=== PATIENT | male | born 1975 | race African-American/Black ===

== ENCOUNTER 2018-10-31 12:57 | Inpatient (IN) | payer MEDICAID, OTHER ==
[~2018-10-31] VITALS: Ht 177.8 cm; Wt 88.5 kg
[~2018-10-31 12:57] MED LIST: BACITRACIN3.5 GM OP; ENALAPRIL MALE2.5 MG ORAL; IBUPROFEN600 MG ORAL; TRAMADOL HCL50 MG ORAL
--- NOTE | 2018-10-31 13:12 | NUR ---
ED Nurse Note: Pt.AAOx4. Wheeled into ER due abd pain that started today. Per pt. has n/v. Pt. had multiple vomniting episodes as reported by patietn with bile emesis. Pt. denies diarrhea and last BM was today. Per pt. he only had very little stool and has not been able to poop for couple of days. Pt. cannot remember how many days exactly he is constipated
--- NOTE | 2018-10-31 13:34 | Emergency Room Report ---
History of Present Illness General Chief Complaint: Abdominal Pain Source: Patient Present Illness HPI Patient is a 43-year-old male who presented after increased abdominal discomfort and vomiting. Patient reports of increased pain to the left upper abdomen. He reports having prior history of hypertension. Patient had acute onset of vomiting earlier in the day. Patient states that he had not been taking any medications. Patient denies any recent alcohol use. He reports having nonbloody emesis. He denies any diarrhea. Allergies: Coded Allergies: No Known Allergies (Unverified , 05/09/14) Patient History Reviewed Nursing Documentation: PMH: Agreed; PSxH: Agreed Nursing Documentation-[facility] Past Medical History: No History, Except For Hx Hypertension: Yes Review of Systems All Other Systems: negative except mentioned in HPI Physical Exam Vital Signs Date Time Temp Pulse Resp B/P (MAP) Pulse Ox O2 Delivery O2 Flow Rate FiO2 10/31/18 12:59 98.1 78 20 178/106 (130) 99 Room Air Sp02 EP Interpretation: reviewed, normal General Appearance: normal inspection, no apparent distress, alert, GCS 15, mild distress Head: atraumatic ENT: normal ENT inspection, hearing grossly normal, normal voice Neck: normal inspection, full range of motion, supple, no bony tend Respiratory: normal inspection, lungs clear, normal breath sounds, no respiratory distress, no retraction, no wheezing Cardiovascular #1: regular rate, rhythm, no edema Gastrointestinal: normal inspection, normal bowel sounds, non tender, soft, no guarding, no hernia Genitourinary: no CVA tenderness Musculoskeletal: normal inspection, back normal, normal range of motion Neurologic: normal inspection, alert, responsive, speech normal Psychiatric: normal inspection, judgement/insight normal, mood/affect normal Skin: normal inspection, normal color, no rash Medical Decision Making Diagnostic Impression: Primary Impression: Hypertensive urgency ER Course Patient presented for abdominal pain. Differential diagnoses included ischemic bowel, appendicitis, perforated viscus, abdominal aortic aneurysm, inferior myocardial infarction, viral gastroenteritis among others. Because of complexity of patient's case laboratory testing and imaging studies were ordered. Patient was noted to have initial nausea and vomiting. He is markedly hypertensive initially. Patient was given IV antiemetics as well as IV fluids. Patient was noted to have some improvement in his blood pressure. Patient's laboratory testing was significant for elevated troponin. Patient was given aspirin. EKG interpreted by me showed normal sinus rhythm without acute ST Changes. Patient was noted to have some lateral T wave inversion. Dr. Jhoan Childs was contacted for inpatient management due to panel physician. Labs Test 10/31/18 13:38 11/01/18 06:16 11/01/18 12:17 11/01/18 13:00 White Blood Count 10.0 K/UL (4.8-10.8) Red Blood Count 5.50 M/UL (4.70-6.10) Hemoglobin 16.4 G/DL (14.2-18.0) Hematocrit 50.9 % (42.0-52.0) Mean Corpuscular Volume 93 FL (80-99) Mean Corpuscular Hemoglobin 29.9 PG (27.0-31.0) Mean Corpuscular Hemoglobin Concent 32.3 G/DL (32.0-36.0) Red Cell Distribution Width 12.4 % (11.6-14.8) Platelet Count 222 K/UL (150-450) Mean Platelet Volume 7.1 FL (6.5-10.1) Neutrophils (%) (Auto) 71.6 % (45.0-75.0) Lymphocytes (%) (Auto) 17.7 % (20.0-45.0) Monocytes (%) (Auto) 6.9 % (1.0-10.0) Eosinophils (%) (Auto) 3.0 % (0.0-3.0) Basophils (%) (Auto) 0.9 % (0.0-2.0) Sodium Level 142 MMOL/L (136-145) Potassium Level 4.0 MMOL/L (3.5-5.1) Chloride Level 106 MMOL/L (98-107) Carbon Dioxide Level 26 MMOL/L (21-32) Anion Gap 10 mmol/L (5-15) Blood Urea Nitrogen 19 mg/dL (7-18) Creatinine 1.2 MG/DL (0.55-1.30) Estimat Glomerular Filtration Rate > 60 mL/min (>60) Glucose Level 101 MG/DL (74-106) Calcium Level 9.5 MG/DL (8.5-10.1) Total Bilirubin 0.4 MG/DL (0.2-1.0) Aspartate Amino Transf (AST/SGOT) 20 U/L (15-37) Alanine Aminotransferase (ALT/SGPT) 23 U/L (12-78) Alkaline Phosphatase 88 U/L (46-116) Total Protein 8.1 G/DL (6.4-8.2) Albumin 3.7 G/DL (3.4-5.0) Globulin 4.4 g/dL Albumin/Globulin Ratio 0.8 (1.0-2.7) Lipase 77 U/L (73-393) Serum Alcohol < 3 mg/dL Triglycerides Level 58 MG/DL (30-150) Cholesterol Level 124 MG/DL (< 200) LDL Cholesterol 64 mg/dL (<100) HDL Cholesterol 42 MG/DL (40-60) Cholesterol/HDL Ratio 3.0 (3.3-4.4) Thyroid Stimulating Hormone (TSH) 1.644 uiU/mL (0.358-3.740) Urine Opiates Screen Negative (NEGATIVE) Urine Barbiturates Screen Negative (NEGATIVE) Phencyclidine (PCP) Screen Negative (NEGATIVE) Urine Amphetamines Screen Positive (NEGATIVE) Urine Benzodiazepines Screen Negative (NEGATIVE) Urine Cocaine Screen Negative (NEGATIVE) Urine Marijuana (THC) Screen Positive (NEGATIVE) EKG Diagnostic Results Rate: normal Rhythm: NSR ST Segments: no acute changes Last Vital Signs Date Time Temp Pulse Resp B/P (MAP) Pulse Ox O2 Delivery O2 Flow Rate FiO2 10/31/18 12:59 98.1 78 20 178/106 (130) 99 Room Air Status: improved Disposition: ADMITTED INPATIENT Condition: Stable Scripts No Active Prescriptions or Reported Michael Anna MD October 31, 2018 13:34
[2018-10-31 13:50] VITALS: BP 165/114
[2018-10-31 14:09] LABS: BASOPHILS % (AUTO) 0.9 % (0.0-2.0); HEMATOCRIT 50.9 % (42.0-52.0); HEMOGLOBIN 16.4 G/DL (14.2-18.0); LYMPHOCYTES % (AUTO) 17.7 % (20.0-45.0); MEAN CORPUSCULAR VOLUME 93 FL (80-99); MONOCYTES % (AUTO) 6.9 % (1.0-10.0); NEUTROPHILS % (AUTO) 71.6 % (45.0-75.0); PLATELET COUNT 222 K/UL (150-450); RED CELL DISTRIBUTION WIDTH 12.4 % (11.6-14.8)
[2018-10-31 14:24] LABS: ANION GAP 10 mmol/L (5-15); BLOOD UREA NITROGEN 19 mg/dL (7-18); CALCIUM 9.5 MG/DL (8.5-10.1); CARBON DIOXIDE 26 MMOL/L (21-32); CHLORIDE 106 MMOL/L (98-107); CREATININE 1.2 MG/DL (0.55-1.30); SODIUM 142 MMOL/L (136-145)
[2018-10-31 14:31] LABS: ALANINE AMINOTRANSFERASE 23 U/L (12-78); ALBUMIN 3.7 G/DL (3.4-5.0); ALBUMIN/GLOBULIN RATIO 0.8 (1.0-2.7); ALKALINE PHOSPHATASE 88 U/L (46-116); ASPARTATE AMINO TRANSFERASE 20 U/L (15-37); BILIRUBIN,TOTAL 0.4 MG/DL (0.2-1.0)
--- NOTE | 2018-10-31 15:00 | NUR ---
ED Nurse Note: PT. IS NOT ABLE TO URINATE. DR. Pereyra IS AWARE AND IT'S OK NOT TO COLLECT IT. PT. IS AWARE OF THE ADMISSION
--- NOTE | 2018-10-31 15:20 | NUR ---
HAND-OFF: Report given to DINORA Sales.
[2018-10-31] MEDS ORDERED: Aspirin Baby 81mg ORAL ONE (15:30)
--- NOTE | 2018-10-31 15:36 | Diagnostic Imaging Report ---
Indication: Chest pain Technique: One view of the chest Comparison: none Findings: Heart is mildly enlarged. Lungs pleural spaces are clear. Impression: Mild cardiomegaly. No acute process
--- NOTE | 2018-10-31 16:02 | NUR ---
ED Nurse Note: TELE UNIT CALLED FOR PT TRANSFER. PER DINORA CHOWDHURY, ROOM IS STILL NOT READY. RN TO CALL BACK WHEN READY.
[2018-10-31 16:04] VITALS: BP 159/104
--- NOTE | 2018-10-31 16:13 | NUR ---
ED Nurse Note: TELE UNIT CALLED AGAIN FOR PT TRANSFER. PER DINORA CHOWDHURY, ROOM IS STILL NOT READY. DINORA CHOWDHURY WILL CALL BACK WHEN READY.
--- NOTE | 2018-10-31 16:41 | NUR ---
ED Nurse Note: CALL RECEIVED FROM DINORA CHOWDHURY IN TELE UNIT. REPORT GIVEN. 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
--- NOTE | 2018-10-31 16:42 | NUR ---
NURSE NOTES: Received report from DINORA Sales @ ED.
[2018-10-31 17:00] VITALS: BP 154/106
--- NOTE | 2018-10-31 19:20 | NUR ---
NURSE NOTES: Report received from Devin Rubio RN. Pt is resting in bed in stable condition. Pt is awake, alert, and oriented x4. Pt is on room air and breathing is even and unlabored. No acute distress noted. IV site is L upper arm #20g and is asymptomatic, patent, and intact and running IV fluids at rx rate. Bed is placed in lowest position with brake engaged, side rails up x3, and bed alarm on. Call light and side table placed within reach. Will continue to monitor.
--- NOTE | 2018-10-31 19:20 | NUR ---
HAND-OFF: Report given to DINORA Khan. Endorsed plan of care.
[2018-10-31 20:00] VITALS: BP 133/78
[2018-10-31] MEDS: Metoprolol 25mg tab ORAL SCH (20:27)
[2018-10-31] MEDS ORDERED: Heparin 5000 units/ml inj SUBQ SCH (21:00)
--- NOTE | 2018-10-31 21:15 | NUR ---
NURSE NOTES: Critical troponin reported from lab of 0.205. Troponin trending downward from 0.241. Message left to notify MD Addison of critical value.
--- NOTE | 2018-10-31 23:45 | History and Physical Report ---
DATE OF ADMISSION: 10/31/2018 REASON FOR ADMISSION: Chest pain, possible acute coronary syndrome. HISTORY: This is a 43-year-old male, who presents with abdominal discomfort. The patient has history of hypertension and was noted to have elevated blood pressure. The patient denies any recent alcohol use. No history of CAD or any family history. PAST MEDICAL HISTORY: Notable for hypertension. MEDICATIONS: Reviewed. ALLERGIES: Reviewed. PHYSICAL EXAMINATION: GENERAL: A well-developed male, comfortable at present. VITAL SIGNS: Reviewed. In the emergency room, blood pressure 178/106, pulse 78, and respirations 20. HEENT: Negative. NECK: Supple. LUNGS: Clear. CARDIAC: S1 and S2. Regular rate and rhythm. ABDOMEN: Soft, nontender, and nondistended. EXTREMITIES: No edema. LABORATORY DATA: Otherwise reviewed. CBC essentially negative. Chemistry is fairly negative. Troponin 0.241. IMPRESSION: 1. Elevated troponin, possible acute coronary syndrome. 2. Mild cardiomegaly. 3. Hypertension, poorly controlled. RECOMMENDATIONS: 1. Supportive care. 2. Troponin every 8 hours x3. 3. Cardiology evaluation. 4. Cardiac diet. 5. Telemetry. 6. Disposition once cleared and the patient improves. Jhoan Childs M.D. DR: MANASA JOB#: [id number] CC:
[2018-11-01] VITALS: BP 157/109
--- NOTE | 2018-11-01 03:00 | Consultation ---
DATE OF CONSULTATION: 10/31/2018 CARDIOLOGY CONSULTATION CONSULTING PHYSICIAN: Zeb Addison M.D. REQUESTING PHYSICIAN: Gaston Graham M.D. REASON FOR CONSULTATION: Malignant hypertension and chest pain. HISTORY OF PRESENT ILLNESS: This 43-year-old male has a longstanding history of hypertension and long periods of noncompliance with medication therapy. He has had poor medical follow-up more recently and does not have a primary physician and has not taken his blood pressure medications for about two months. Further, he has had such episodes of noncompliance in the past as long as 8 years ago when he was incarcerated for a time. On this occasion, he has developed abdominal pain, nausea, vomiting, and chest pain. He came to the emergency room were malignant range blood pressure was confirmed. He was started on therapy and admitted to the hospital for further management. I have been asked to assist with cardiovascular care. PAST MEDICAL HISTORY: Hypertension. MEDICATIONS: Previously prescribed were reviewed. ALLERGIES: None known. SOCIAL HISTORY: Positive smoker. History of alcohol use. History of substance abuse. REVIEW OF SYSTEMS: A 10-point review of systems performed. All systems negative other than noted above. PHYSICAL EXAMINATION: VITAL SIGNS: Blood pressure as high as 178/106, heart rate 78, respiratory rate 20, and afebrile. HEENT: Fundi benign. Conjunctivae pink. Oropharynx clear. NECK: Supple. Jugular venous pressure normal. No bruits. LUNGS: Clear. CARDIAC: Regular. Normal S1, S2 with no murmur. ABDOMEN: Soft and nontender with no bruits. EXTREMITIES: Good pulses. No edema. NEUROLOGIC: Nonfocal. LABORATORY AND DIAGNOSTIC DATA: EKG reveals sinus bradycardia with left ventricular hypertrophy. Laboratories, white count 10 and hemoglobin 16. Troponin 0.241. BUN 12 19 and creatinine 1.2. Potassium 4. Chest x-ray, no acute process. IMPRESSION: 1. Hypertensive urgency. 2. Acute coronary insufficiency and possible non-ST elevation myocardial infarction. 3. Chronic kidney disease. PLAN: 1. Anti-platelet therapy. 2. Cardiac monitoring. 3. Titrate antihypertensive regimen including calcium and beta-blockers. 4. Avoid diuretics. 5. Lipid panel. 6. Thyroid function. 7. Consideration for further assessment of coronary flow reserve. 8. We will follow. 9. An echocardiogram has been requested at this time. Zeb [place] Addison DR: CINDI JOB#: [id number] CC:
[2018-11-01 04:00] VITALS: BP 157/98
--- NOTE | 2018-11-01 07:18 | NUR ---
NURSE NOTES: Received report from DINORA Khan. Patient is in stable condition. No acute distress/SOB noted. Will continue plan of care.
--- NOTE | 2018-11-01 07:23 | NUR ---
HAND-OFF: Report given to Devin Rubio RN. Pt is resting in bed in stable condition. No acute distress noted. Endorsed plan of care.
[2018-11-01 07:47] LABS: CHOLESTEROL 124 MG/DL (< 200); HDL CHOLESTEROL 42 MG/DL (40-60); TRIGLYCERIDES 58 MG/DL (30-150)
[2018-11-01 08:00] VITALS: BP 169/96
[2018-11-01] MEDS: Metoprolol 25mg tab ORAL SCH ×2 (08:09→21:57)
[2018-11-01 12:00] VITALS: BP 142/94
[2018-11-01] MEDS ORDERED: Lisinopril 20mg tab ORAL SCH (12:00)
--- NOTE | 2018-11-01 12:12 | Cardiology Report ---
APPROVED REPORT EKG Measurement Heart [id number] NM [id number] Normal sinus rhythm Possible Left atrial enlargement Nonspecific T wave abnormality Abnormal ECG
--- NOTE | 2018-11-01 12:42 | Cardiology Report ---
APPROVED REPORT EXAM: Two-dimensional and M-mode echocardiogram with Doppler and color Doppler. INDICATION Abnormal cardiac function M-Mode DIMENSIONS IVSd1.0 (0.7-1.1cm)Left Atrium (MM)4.2 (1.6-4.0cm) LVDd5.0 (3.5-5.6cm)Aortic Root3.3 (2.0-3.7cm) PWd1.2 (0.7-1.1cm)Aortic Cusp Exc.2.3 (1.5-2.0cm) IVSs1.6 cm LVDs2.7 (2.5-4.0cm) PWs1.8 cm Normal left ventricular chamber size, systolic function and wall motion. Left ventricular ejection fraction estimated to be 60-65 %. Moderate left ventricular hypertrophy. Anterior Echo-free space, may be due to pericardial fat or effusion. Left atrial size at upper limits of normal. Right cardiac chamber sizes are within normal limits. Focal aortic valve sclerosis with adequate cusp excursion. Thickened mitral valve leaflets with normal excursion. Mitral annulus and aortic root calcification. Normal pulmonic valve structure. Normal tricuspid valve structure. IVC at normal size with physiologic collapse. A color flow and spectral Doppler study was performed and revealed: Trace mitral regurgitation. Mitral diastolic velocities suggest reduced left ventricular relaxation c/w mild LV diastolic dysfunction (Grade I). Trace tricuspid regurgitation. Tricuspid systolic velocities suggests peak right ventricular systolic pressure of 20 mmHg.
--- NOTE | 2018-11-01 13:01 | NUR ---
NURSE NOTES: Called Dr. Addison and left message for pt's drug urine test positive for amphetamine and marijuana.
--- NOTE | 2018-11-01 13:01 | General Progress Note ---
Assessment/Plan Assessment/Plan: hypertension out of control elevated troponin amphetamine use PLAN bp rx cards follow up await clearance echo reviewed labs stable impression, plan, and exam edited and reviewed in detail care discussed with RN Subjective Allergies: Coded Allergies: No Known Allergies (Unverified , 05/09/14) Subjective wants to go home awaiting cards recommendations Objective Last 24 Hour Vital Signs Date Time Temp Pulse Resp B/P (MAP) Pulse Ox O2 Delivery O2 Flow Rate FiO2 11/01/18 12:12 148/92 11/01/18 12:00 98.1 58 20 142/94 (110) 96 11/01/18 11:31 154/92 11/01/18 09:00 Room Air 11/01/18 08:09 57 169/96 11/01/18 08:09 57 169/96 11/01/18 08:00 62 11/01/18 08:00 98.5 57 20 169/96 (120) 97 11/01/18 04:29 157/98 11/01/18 04:00 59 11/01/18 04:00 98.1 57 18 157/98 (117) 97 11/01/18 00:00 98.3 55 20 157/109 (125) 97 11/01/18 00:00 55 10/31/18 21:00 Room Air 10/31/18 20:27 64 133/78 10/31/18 20:00 66 10/31/18 20:00 98.6 64 16 133/78 (96) 100 10/31/18 18:04 60 154/106 10/31/18 17:35 Room Air 10/31/18 17:00 60 10/31/18 17:00 97.5 58 20 154/106 (122) 98 10/31/18 16:40 98.3 64 21 181/121 98 Room Air 10/31/18 16:04 98.2 62 20 159/104 99 Room Air 10/31/18 13:50 60 17 Room Air 10/31/18 13:50 98.1 60 17 165/114 99 Room Air Intake and Output 10/31/18 11/01/18 19:00 07:00 Intake Total 1390 ml 240 ml Output Total 0 ml Balance 1390 ml 240 ml Intake Oral 240 ml 240 ml IV Total 1150 ml Output Urine Total 0 ml Laboratory Tests 10/31/18 13:38: White Blood Count 10.0, Red Blood Count 5.50, Hemoglobin 16.4, Hematocrit 50.9, Mean Corpuscular Volume 93, Mean Corpuscular Hemoglobin 29.9, Mean Corpuscular Hemoglobin Concent 32.3, Red Cell Distribution Width 12.4, Platelet Count 222, Mean Platelet Volume 7.1, Neutrophils (%) (Auto) 71.6, Lymphocytes (%) (Auto) 17.7L, Monocytes (%) (Auto) 6.9, Eosinophils (%) (Auto) 3.0, Basophils (%) (Auto ) 0.9, Sodium Level 142, Potassium Level 4.0, Chloride Level 106, Carbon Dioxide Level 26, Anion Gap 10, Blood Urea Nitrogen 19H, Creatinine 1.2, Estimat Glomerular Filtration Rate > 60, Glucose Level 101, Calcium Level 9.5, Total Bilirubin 0.4, Aspartate Amino Transf (AST/SGOT) 20, Alanine Aminotransferase (ALT/SGPT) 23, Alkaline Phosphatase 88, Troponin I 0.241H, Total Protein 8.1, Albumin 3.7, Globulin 4.4, Albumin/Globulin Ratio 0.8L, Lipase 77, Serum Alcohol < 3 10/31/18 20:15: Troponin I 0.205H 11/01/18 06:16: Troponin I 0.218H, Triglycerides Level 58, Cholesterol Level 124, LDL Cholesterol 64, HDL Cholesterol 42, Cholesterol/HDL Ratio 3.0L, Thyroid Stimulating Hormone (TSH) 1.644 11/01/18 12:17: Urine Opiates Screen Negative, Urine Barbiturates Screen Negative, Phencyclidine (PCP) Screen Negative, Urine Amphetamines Screen PositiveH, Urine Benzodiazepines Screen Negative, Urine Cocaine Screen Negative, Urine Marijuana (THC) Screen PositiveH Height (Feet): 5 Height (Inches): 10.00 Weight (Pounds): 195 Objective WDWN NAD clear breath sounds bilaterally without rhonchi or wheeze [id number] without MRG NABS nontender no HSM no CCE nonfocal Jhoan Childs MD November 01, 2018 13:01
--- NOTE | 2018-11-01 15:00 | NUR ---
*-* INSURANCE *-* CLINICALS HAVE BEEN FAXED TO: [facility] FAX CLINICALS TO [phone]
[2018-11-01 16:00] VITALS: BP 136/87
--- NOTE | 2018-11-01 16:06 | NUR ---
CASE MANAGEMENT:REVIEW 43 YR OLD MALE PRESENTED TO ER CC: ABDOMINAL PAIN WITH NAUSEA AND VOMITING SI: HYPERTENSIVE URGENCY. ELEVATED TROPONIN 98.0 78 20 181/121 99% ON RA BUN+19 TROPONIN(+) 0.241 IS: IV ZOFRAN IV PEPCID 1L NS BOLUS ASA PO : TO TELEMETRY IS: LISINOPRIL PO QD NORVASC PO BID LOPRESSOR PO Q12 INTERQUAL CRITERIA MET
[2018-11-01] MEDS: Aspirin EC 81mg tab ORAL SCH (18:49)
--- NOTE | 2018-11-01 19:15 | NUR ---
NURSE NOTES: Report received from Devin Rubio RN. Pt is resting in bed in stable condition. Pt is AOx4. Pt is on room air and breathing is even and unlabored. No acute distress noted. IV site is R FA #20g and is asymptomatic, patent, and intact. Bed is in lowest position with brake engaged, side rails up x2. Call light and side table placed within reach. Will continue to monitor.
--- NOTE | 2018-11-01 19:15 | NUR ---
HAND-OFF: Report given to DINORA Khan. Patient is in stable condition. Endorsed plan of care.
[2018-11-01 20:00] VITALS: BP 165/99
--- NOTE | 2018-11-01 21:55 | NUR ---
NURSE NOTES: Lab called to report elevated troponin of 0.189. Troponin is trending down from earlier result of 0.191. Message left to notify MD Addison and to report that pt wishes to speak with him regarding clearance for discharge.
--- NOTE | 2018-11-01 22:00 | Progress Note ---
DATE: 11/01/2018 CARDIOLOGY PROGRESS NOTE SUBJECTIVE: The patient has no complaints. Anxious to go home. His blood pressure remains uncontrolled. His urine tox screen was positive for amphetamine. OBJECTIVE: VITAL SIGNS: Blood pressure 169/96, heart rate 57, and respiratory rate 20. LUNGS: Clear. CARDIAC: Regular. Normal S1, S2 with a fourth heart sound. ABDOMEN: Soft. EXTREMITIES: No edema. DIAGNOSTIC DATA: Echocardiogram with normal ejection fraction and no pulmonary hypertension. No valvular pathology. Of note, there is diastolic dysfunction seen. LABORATORY DATA: Reviewed. Troponin remain elevated in the range of 0.200 with no peak or trough trending. IMPRESSION: 1. Acute hypertensive urgency. 2. Amphetamine abuse. 3. Acute coronary syndrome. 4. Chronic kidney disease. PLAN: 1. Titrate antihypertensives. 2. Advised against amphetamine use. 3. Anti-platelet therapy. 4. No stress testing in the setting of acute substance abuse. 5. Discharge once blood pressure parameters stabilize. Zeb Addison M.D. DR: CINDI JOB#: [id number] CC:
--- NOTE | 2018-11-01 22:24 | NUR ---
NURSE NOTES: MD Childs return call and give orders for Milk of Magnesia 30cc PO QD PRN for constipation and Zofran 4mg IVP Q6HR PRN for nausea/vomiting. Orders noted and carried out.
--- NOTE | 2018-11-01 22:25 | NUR ---
NURSE NOTES: Message left for MD Childs requesting something for constipation and nausea. Pt reports that he has not had a BM in 3 days. Awaiting call back for further instructions. Will continue to monitor.
[2018-11-01] MEDS ORDERED: Milk of Magnesia 30ml Ud ORAL PRN (23:00)
[2018-11-02] VITALS: BP 142/85
--- NOTE | 2018-11-02 01:04 | NUR ---
NURSE NOTES: Pt had x2 emesis, yellow with undigested food and complaining of constipation and abdominal pain. Abdomen is slightly distended with some guarding by patient but is not tender upon palpation. Bowel sounds heard in all 4 quadrants. Pt reports having small bowel movement. Pt education provided regarding diet. Zofran and MOM administered per PRN orders. Pt reports improvement in abdominal pain and nausea. Will continue to monitor.
[2018-11-02 04:00] VITALS: BP 140/80
[2018-11-02 06:51] LABS: ALANINE AMINOTRANSFERASE 24 U/L (12-78); ALBUMIN/GLOBULIN RATIO 0.8 (1.0-2.7); ALKALINE PHOSPHATASE 61 U/L (46-116); ANION GAP 4 mmol/L (5-15); ASPARTATE AMINO TRANSFERASE 15 U/L (15-37); BILIRUBIN,TOTAL 0.5 MG/DL (0.2-1.0); BLOOD UREA NITROGEN 19 mg/dL (7-18); CALCIUM 8.7 MG/DL (8.5-10.1); CARBON DIOXIDE 31 MMOL/L (21-32); CHLORIDE 105 MMOL/L (98-107); CREATININE 1.2 MG/DL (0.55-1.30); POTASSIUM 3.9 MMOL/L (3.5-5.1); SODIUM 140 MMOL/L (136-145)
--- NOTE | 2018-11-02 07:16 | NUR ---
HAND-OFF: Report given to Mary Negron RN. Pt is resting in bed in stable condition. No acute distress noted. Endorsed plan of care.
[2018-11-02 08:00] VITALS: BP 176/105
[2018-11-02] MEDS ORDERED: Lisinopril 20mg tab ORAL SCH (09:00)
[2018-11-02 09:35] VITALS: BP 176/105
[2018-11-02] MEDS: Aspirin EC 81mg tab ORAL SCH (09:42)
[2018-11-02] MEDS: Metoprolol 25mg tab ORAL SCH (09:42)
--- NOTE | 2018-11-02 10:00 | NUR ---
CASE MANAGEMENT:REVIEW 11/02/18 SI: ACUTE HYPERTENSIVE URGENCY. ACS 98.1 58 19 176/105 97% ON RA TROPONIN(+) 0.178 IS: LISINOPRIL PO QD ASA PO QD NORVASC PO BID LOPRESSOR PO Q12 IVF@100/HR : TELEMETRY STATUS DCP: FROM HOME
--- NOTE | 2018-11-02 10:27 | NUR ---
*-* INSURANCE *-* CLINICALS HAVE BEEN FAXED TO: [facility] FAX CLINICALS TO [phone] Addendum: 11/02/18 at 1639 by BREANNA SANTOS CM CARSON: RISHI Browne
--- NOTE | 2018-11-02 10:30 | NUR ---
NURSE NOTES: patient and PCG demanding to be seen by Land Developer and ADMITTING DOCTOR I Called DR. Addison loader semiconductor dies and Dr. Childs admitting doctor regarding patient request.
[2018-11-02 12:00] VITALS: BP 140/88
--- NOTE | 2018-11-02 15:17 | NUR ---
NURSE NOTES: Patient noted that he wants to leave AMA because he has been waiting for virtualization consultant and admitting doctor since yesterday. patient signed AMA and left hospital at 1457pm. HCP and charge nurse notified.
--- NOTE | 2018-11-03 01:45 | Progress Note ---
DATE: 11/02/2018 CARDIOLOGY PROGRESS NOTE The patient left the hospital AMA at approximately 2 p.m. Earlier, staff contacted me regarding his evaluation and discharge. I informed to staff to tell the patient, I was going to be rounding later this afternoon. The patient was seen and evaluated yesterday and made aware of his that he would only be discharge once his blood pressure was adequately controlled. He was also made aware of the risks of illicit drug use and that his amphetamine level was positive in his toxicology screen. He was made aware that this drug increases risk of acute cardiovascular events including heart attack and arrhythmias as well as elevated blood pressures. His antihypertensive regimen was advanced yesterday and being further . Efforts will be made to contact the patient for follow up and confirmation of medication compliance as an outpatient as well. Zeb Addison M.D. DR: CATY JOB#: [id number] CC:
--- NOTE | 2018-11-05 12:32 | Discharge Summary ---
Discharge Summary Discharge Summary _ DATE OF ADMISSION: 10/31/2018 DATE OF DISCHARGE: 11/02/2018 Patient left AGAINST MEDICAL ADVICE REASON FOR ADMISSION: 43 years old male with past medical history of hypertension, presented with abdominal discomfort in the left upper quadrant. Patient reported acute onset of nonbloody nonbilious vomiting earlier prior to ED visit. Patient was not taking any medication . He denied recent alcohol use. No fever, no chills. No diarrhea. Upon evaluation vital signs revealed elevated blood pressure 178/106 , otherwise were stable Laboratory work-up revealed no leukocytosis, stable hemoglobin and hematocrit. Stable electrolytes. BUN 19 creatinine 1.2. Glucose 101. Stable LFT and lipase. TSH within normal limits. Urine toxicology screen was positive for amphetamine and marijuana. EKG revealed normal sinus rhythm, no acute ischemic changes. Troponin elevated 0.191. Patient subsequently admitted to telemetry floor for elevated troponin , rule out acute coronary syndrome and hypertensive urgency. 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 Addison [facility]: Patient admitted to telemetry floor. Cardiology closely followed. Serial troponin revealed mild but persistent elevation in troponin . ECG revealed no acute ischemic changes. Lipid panel was stable. Echocardiogram revealed preserved ejection fraction 60 to 65% with moderate left ventricular hypertrophy. No evidence of wall motion abnormality. Right ventricular systolic pressure of 20. Antiplatelet therapy with aspirin and statin provided. Blood pressure was managed with multiple antihypertensive medications. Antihypertensive regimen was further up-titrated to keep blood pressure under control. Apparel Sales Leader did not recommend stress testing in the setting of acute substance abuse. DVT and GI prophylaxis provided. Supportive care provided. Patient was counseled on abstinence from illicit street drugs. Blood pressure stabilized; prior to signing AMA blood pressure 140/88. Renal parameters and electrolytes were closely monitored. Electrolytes remained stable. Nephrotoxins were avoided. Patient decided to leave AGAINST MEDICAL ADVICE. The risks and consequences of signing AGAINST MEDICAL ADVICE were discussed with patient in detail. Patient verbalized understanding, nevertheless signed AMA form and left. FINAL DIAGNOSES: Hypertensive urgency Elevated troponin Possible acute coronary syndrome Chronic kidney disease Amphetamine abuse I have been assigned to dictate discharge summary for this account. I was not involved in the patient's management. Rosey Caceres NP Nov 05, 2018 12:32
== END 2018-11-02 15:00 | disposition left against medical advice (07) | DRG 199 ==
LOC: EMR 13:50 → 2E 15:13 → EDBEDREQ 15:44 → 2E 16:40
DX: I16.0 Hypertensive urgency (principal); I24.9 Acute ischemic heart disease, unspecified; I13.10 Hypertensive heart and chronic kidney disease without heart failure, with stage 1 through stage 4 chronic kidney disease, or unspecified chronic kidney disease; Z72.0 Tobacco use; F15.10 Other stimulant abuse, uncomplicated; N18.9 Chronic kidney disease, unspecified; Z53.21 Procedure and treatment not carried out due to patient leaving prior to being seen by health care provider
CPT/HCPCS: 36415; 71045; 80053; 80061; 80307; 80329; 82550; 82553; 83690; 83880; 84443; 84484; 85025; 93005; 93306; 96361; 96374; 96375; 99285; J2405